=== PATIENT | male | born 1980 | race American Indian/Alaskan Native ===

== ENCOUNTER 2017-09-27 15:07 | Emergency (ER) | payer SELFPAY | END 2017-09-27 15:08 | disposition left against medical advice (07) | LOC: ED 15:07 | DX: Z53.21 Procedure and treatment not carried out due to patient leaving prior to being seen by health care provider (principal) ==

== ENCOUNTER 2019-01-20 13:53 | Emergency (ER) | payer SELFPAY ==
[2019-01-20] MEDS ORDERED: MOTRIN PO ONE (16:19)
--- NOTE | 2019-01-20 16:22 | Emergency Department Report ---
ED Back Pain/Injury HPI - General Chief Complaint: Rectal Pain Stated Complaint: TAILBONE PAIN/EXTREME Time Seen by Provider: 01/20/19 16:18 Source: patient Limitations: No Limitations - History of Present Illness Initial Comments: 38-year-old male reports to the emergency room for rectal pain after having a BM this morning. Patient reports he fell onto his butt on Wednesday with states pain only started after BM today. Patient is taking nothing for pain. Patient has no past medical history no surgical history no allergies to medicine no current medications. MD Complaint: back injury, fall -: days(s) (3) Similar Symptoms Previously: No Place: work Quality: sharp Consistency: intermittent Improves With: none Worsens With: other (bowel movement) Context: fall Associated Symptoms: denies other symptoms - Related Data Previous Rx's Medication Instructions Recorded Last Taken Type HYDROcodone/APAP 5-325 [[place] 1 each PO Q6HR PRN #15 tablet 07/27/15 08/01/15 09:00 Rx 5/325] cephALEXin [Keflex] 500 mg PO Q6HR #21 capsule 07/27/15 08/03/15 09:00 Rx Ibuprofen [Motrin 600 MG tab] 600 mg PO Q8H PRN #21 tablet 01/20/19 Unknown Rx Allergies Allergy/AdvReac Type Severity Reaction Status Date / Time No Known Allergies Allergy Verified 01/20/19 13:55 ED Review of Systems ROS: Stated complaint: TAILBONE PAIN/EXTREME Other details as noted in HPI Comment: All other systems reviewed and negative Musculoskeletal: back pain (sacrococcyx pain or tenderness) ED Past Medical Hx - Past Medical History Previous Medical History?: No - Surgical History Past Surgical History?: No - Social History Smoking Status: Current Some Day Smoker Substance Use Type: None - Medications Home Medications: Home Medications Medication Instructions Recorded Confirmed Last Taken Type HYDROcodone/APAP 5-325 [[place] 1 each PO Q6HR PRN #15 tablet 07/27/15 08/03/15 08/01/15 09:00 Rx 5/325] cephALEXin [Keflex] 500 mg PO Q6HR #21 capsule 07/27/15 08/03/15 08/03/15 09:00 Rx Ibuprofen [Motrin 600 MG tab] 600 mg PO Q8H PRN #21 tablet 01/20/19 Unknown Rx ED Physical Exam - General Limitations: No Limitations General appearance: alert, in no apparent distress - Head Head exam: Present: atraumatic, normocephalic - Eye Eye exam: Present: normal appearance - ENT ENT exam: Present: mucous membranes moist - Respiratory Respiratory exam: Absent: respiratory distress - GI/Abdominal GI/Abdominal exam: Present: soft. Absent: distended - Back Exam Back exam: Present: other (Cococcyx is tenderness) - Neurological Exam Neurological exam: Present: alert, oriented X3 - Psychiatric Psychiatric exam: Present: normal affect, normal mood - Skin Skin exam: Present: warm, dry, intact, normal color. Absent: rash ED Course Vital Signs 01/20/19 13:55 Temperature 98.3 F Pulse Rate 85 Respiratory 16 Rate Blood Pressure 157/105 O2 Sat by Pulse 98 Oximetry ED Medical Decision Making - Radiology Data Radiology results: report reviewed X-ray of spine sacral cockle is to do shows negative views of the sacrum and coccyx. No evidence of sclerosis without evidence of acute fractures noted. - Medical Decision Making Patient has been evaluated by this provider in [facility]. Ibuprofen given for pain. X-ray of sacrococcygeal Critical care attestation.: If time is entered above; I have spent that time in minutes in the direct care of this critically ill patient, excluding procedure time. ED Disposition Clinical Impression: Coccygeal pain, acute Disposition: DC-01 TO HOME OR SELFCARE Is pt being admited?: No Does the pt Need Aspirin: No Condition: Stable Additional Instructions: X-rays were negative of your sacral and coccygeal. Pain medication as needed. Follow-up with the primary care provider if his symptoms persist or gets worse. Prescriptions: Ibuprofen [Motrin 600 MG tab] 600 mg PO Q8H PRN #21 tablet PRN Reason: Pain Referrals: CARRIE SINCLAIR MD [Primary Care Provider] - 3-5 Days
--- NOTE | 2019-01-20 17:24 | XRay Report ---
PROCEDURE: XR SPINE SACRUM/COCCYX 2+V TECHNIQUE: AP, angled, and lateral views of the sacrum and coccyx HISTORY: fall with coccyx with pain and tenderness COMPARISONS: None . FINDINGS: Sacroiliac joints are maintained with no evidence for sclerosis. No definite evidence for acute fract ure is noted. Sacral arches are maintained. Coccyx appears normal without fracture. The presacral sof t tissues are normal. Numerous calcified phleboliths deep in the pelvis are noted. IMPRESSION: Negative views of the sacrum and coccyx This document is electronically signed by Barbara Andrew MD., January 20 2019 05:22:31 PM ET
[2019-01-20 18:11] VITALS: BP 140/98
== END 2019-01-20 18:10 | disposition home or self-care (01) ==
LOC: ED 13:53
DX: M53.3 Sacrococcygeal disorders, not elsewhere classified (principal); F17.200 Nicotine dependence, unspecified, uncomplicated
CPT/HCPCS: 72220

== ENCOUNTER 2020-02-08 18:27 | Emergency (ER) | payer SELFPAY ==
[2020-02-08 18:32] VITALS: BP 161/98
--- NOTE | 2020-02-08 18:59 | Emergency Department Report ---
- General Chief Complaint: Headache Stated Complaint: HEADACHE SORE THROAT Time Seen by Provider: 02/08/20 18:34 Source: patient Mode of arrival: Ambulatory Limitations: No Limitations - History of Present Illness Initial Comments: This is a 39-year-old male nontoxic, well nourished in appearance, no acute signs of distress presents to the ED with c/o of rhinorrhea, nasal congestion, sore throat and frontal sinus headache. Patient describes headache as diffuse with level of 3 out of 10. Patient denies thunderclap headache. Patient denies any radiation of pain. Patient denies any head trauma. Patient denies any visual changes. Patient denies worse headache. Patient denies facial drooping or one sided weakness. Patient denies any radiation of pain. Patient describe s sore throat as swallowing razer blades. Patient denies any fever, chills, headache, stiff neck, nausea, vomiting, chest pain, shortness of breath, numbness or tingling. Patient denies any drooling or hoarseness. Patient denies any allergies or significant past medical history. MD Complaint: sore throat, sinus pain -: days(s) Severity: mild Severity scale (0 -10): 3 Quality: aching Consistency: intermittent Improves With: nothing Worsens With: other (swallowing) Associated Symptoms: rhinorrhea, nasal congestion, other (frontal sinus headache). denies: fever, chills, myalgias, diaphoresis, headache, sore throat, stiff neck, cough, chest pain, shortness of breath, abdominal pain, nausea, vomiting, diarrhea, dysuria, rash, confusion, right sweats, weight loss, epi staxis, hoarseness, ear pain - Related Data Previous Rx's Medication Instructions Recorded Last Taken Type HYDROcodone/APAP 5-325 [[place] 1 each PO Q6HR PRN #15 tablet 07/27/15 08/01/15 09:00 Rx 5/325] cephALEXin [Keflex] 500 mg PO Q6HR #21 capsule 07/27/15 08/03/15 09:00 Rx Ibuprofen [Motrin 600 MG tab] 600 mg PO Q8H PRN #21 tablet 01/20/19 Unknown Rx Clindamycin [Clindamycin CAP] 300 mg PO Q8H #21 cap 02/11/19 Unknown Rx Naproxen [Naprosyn] 500 mg PO DAILY PRN #20 tablet 02/11/19 Unknown Rx traMADoL [Ultram 50 MG tab] 50 mg PO Q6HR PRN #12 tablet 02/11/19 Unknown Rx Amoxicillin/K Clav Tab [Augmentin 1 tab PO Q12HR #20 tab 02/08/20 Unknown Rx 875 mg] Nystas/Diphen/Xyl Visc/Mylanta 15 ml MM Q6H PRN 5 Days ml 02/08/20 Unknown Rx [Magic Mouthwash] Allergies Allergy/AdvReac Type Severity Reaction Status Date / Time No Known Allergies Allergy Verified 02/08/20 18:28 ED Review of Systems ROS: Stated complaint: HEADACHE SORE THROAT Other details as noted in HPI Constitutional: denies: chills, fever Eyes: denies: eye pain, eye discharge, vision change ENT: congestion. denies: ear pain, throat pain Respiratory: denies: cough, shortness of breath, wheezing Cardiovascular: denies: chest pain, palpitations Endocrine: no symptoms reported Gastrointestinal: denies: abdominal pain, nausea, diarrhea Genitourinary: denies: urgency, dysuria Musculoskeletal: denies: back pain, joint swelling, arthralgia Skin: denies: rash, lesions Neurological: headache. denies: weakness, paresthesias Psychiatric: denies: anxiety, depression Hematological/Lymphatic: denies: easy bleeding, easy bruising ED Past Medical Hx - Past Medical History Previous Medical History?: No - Surgical History Past Surgical History?: No - Social History Smoking Status: Never Smoker Substance Use Type: None - Medications Home Medications: Home Medications Medication Instructions Recorded Confirmed Last Taken Type HYDROcodone/APAP 5-325 [[place] 1 each PO Q6HR PRN #15 tablet 07/27/15 08/03/15 08/01/15 09:00 Rx 5/325] cephALEXin [Keflex] 500 mg PO Q6HR #21 capsule 07/27/15 08/03/15 08/03/15 09:00 Rx Ibuprofen [Motrin 600 MG tab] 600 mg PO Q8H PRN #21 tablet 01/20/19 Unknown Rx Clindamycin [Clindamycin CAP] 300 mg PO Q8H #21 cap 02/11/19 Unknown Rx Naproxen [Naprosyn] 500 mg PO DAILY PRN #20 tablet 02/11/19 Unknown Rx traMADoL [Ultram 50 MG tab] 50 mg PO Q6HR PRN #12 tablet 02/11/19 Unknown Rx Amoxicillin/K Clav Tab [Augmentin 1 tab PO Q12HR #20 tab 02/08/20 Unknown Rx 875 mg] Nystas/Diphen/Xyl Visc/Mylanta 15 ml MM Q6H PRN 5 Days ml 02/08/20 Unknown Rx [Magic Mouthwash] ED Physical Exam - General Limitations: No Limitations General appearance: alert, in no apparent distress - Head Head exam: Present: atraumatic, normocephalic - Eye Eye exam: Present: normal appearance, PERRL, EOMI - Expanded ENT Exam Expanded Ear exam: Present: normal external inspection Mouth exam: Present: normal external inspection, drooling, tongue normal. Absent: trismus, muffled voice Teeth exam: Present: normal inspection Throat exam: Positive: tonsillar erythema, tonsillomegaly (2+), other (uvula midline. no abscess or swelling noted). Negative: tonsillar exudate, R peritonsillar mass, L peritonsillar mass - Neck Neck exam: Present: normal inspection, full ROM. Absent: tenderness, meningismus, lymphadenopathy - Respiratory Respiratory exam: Present: normal lung sounds bilaterally. Absent: respiratory distress, wheezes, rales, rhonchi, stridor - Cardiovascular Cardiovascular Exam: Present: regular rate, normal rhythm, normal heart sounds. Absent: bradycardia, tachycardia, irregular rhythm, systolic murmur, diastolic murmur, rubs, gallop - Extremities Exam Extremities exam: Present: normal inspection, full ROM - Back Exam Back exam: Present: normal inspection, full ROM. Absent: tenderness, CVA tenderness (R), CVA tenderness (L), muscle spasm, paraspinal tenderness, vertebral tenderness, rash noted - Neurological Exam Neurological exam: Present: alert, oriented X3, normal gait - Expanded Neurological Exam Expanded Patient oriented to: Present: person, place, time Cranial nerves: EOM's Intact: Normal, Facial Sensation: Normal Cerebellar function: Finger to Nose: Normal Motor strength exam: RUE: 5, LUE: 5, RLE: 5, LLE: 5 Best Eye Response ([place]): (4) open spontaneously Best Motor Response (Demetri): (6) obeys commands Best Verbal Response ([place]etri): (5) oriented [place] Total: 15 - Psychiatric Psychiatric exam: Present: normal affect, normal mood - Skin Skin exam: Present: warm, dry, intact, normal color. Absent: rash ED Course Vital Signs 02/08/20 18:31 Temperature 97.7 F Pulse Rate 75 Respiratory 18 Rate Blood Pressure 161/98 [Right] - Reevaluation(s) Reevaluation #1: 02/08/20 19:01 Patient is speaking in full sentences with no signs of distress noted. ED Medical Decision Making - Medical Decision Making This is a 39-year-old male that presents with sinusitis and pharyngitis. Patient is stable and was examined by me. Patient is neurologically stable. There is no stiff neck or neck pain. Vital signs are stable. Patient is afebrile. Patient be treated with Augmentin. Patient was referred to Follow-up with a primary care doctor in 3-5 days or if symptoms worsen and continue return to emergency room as soon as possible. At time of discharge, the patient does not seem toxic or ill in appearance. No acute signs of distress noted. Patient agrees to discharge treatment plan of care. No further questions noted by the patient. Critical care attestation.: If time is entered above; I have spent that time in minutes in the direct care of this critically ill patient, excluding procedure time. ED Disposition Clinical Impression: Sinusitis Qualifiers: Sinusitis location: frontal Chronicity: acute Recurrence: non-recurrent Qualified Code(s): J01.10 - Acute frontal sinusitis, unspecified Pharyngitis Qualifiers: Pharyngitis/tonsillitis etiology: unspecified etiology Qualified Code(s): J02.9 - Acute pharyngitis, unspecified Disposition: DC-01 TO HOME OR SELFCARE Is pt being admited?: No Does the pt Need Aspirin: No Condition: Stable Instructions: Sinusitis (ED), Pharyngitis (ED) Additional Instructions: Follow-up with a primary care doctor in 3-5 days or if symptoms worsen and continue return to emergency room as soon as possible. Prescriptions: Amoxicillin/K Clav Tab [Augmentin 875 mg] 1 tab PO Q12HR #20 tab Nystas/Diphen/Xyl Visc/Mylanta [Magic Mouthwash] 15 ml MM Q6H PRN 5 Days ml PRN Reason: Sore Throat Referrals: PRIMARY CARE, [Referring] - 3-5 Days ROSY HAGAN MD [Staff Physician] - 3-5 Days [facility] [Provider Group] - 3-5 Days Forms: Work/School Release Form(ED)
== END 2020-02-08 19:10 | disposition home or self-care (01) ==
LOC: ED 18:27
DX: J32.8 Other chronic sinusitis (principal); J02.9 Acute pharyngitis, unspecified; Z79.899 Other long term (current) drug therapy; Z98.890 Other specified postprocedural states
CPT/HCPCS: 99282

== ENCOUNTER 2020-12-21 06:20 | Emergency (ER) | payer OTHER ==
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
[2020-12-21 08:38] LABS: Basophils # (Auto) 0.1 K/mm3 (0.0-0.1); Eosinophils # (Auto) 0.2 K/mm3 (0.0-0.4); Eosinophils % (Auto) 3.1 % (0.0-4.3); Hematocrit 39.5 % (35.5-45.6); Hemoglobin 13.8 gm/dl (11.8-15.2); Lymphocytes # (Auto) 2.3 K/mm3 (1.2-5.4); Lymphocytes % (Auto) 29.4 % (13.4-35.0); Mean Corpuscular HGB Conc 35 % (32-34); Mean Corpuscular Volume 90 fl (84-94); Monocytes # (Auto) 0.9 K/mm3 (0.0-0.8); Monocytes % (Auto) 12.2 % (0.0-7.3); Platelet Count 234 K/mm3 (140-440); Red Blood Count 4.39 M/mm3 (3.65-5.03); Red Cell Distribution Width 13.7 % (13.2-15.2)
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
[2020-12-21 08:55] LABS: INR 1.07 (0.87-1.13); Partial Thromboplastin Time 29.5 Sec. (24.2-36.6)
[2020-12-21 09:02] LABS: BUN/Creatinine Ratio 15; Blood Urea Nitrogen 16 mg/dL (9-20); Calcium 8.4 mg/dL (8.4-10.2); Hemolysis Index 3
[2020-12-21 09:12] VITALS: BP 122/72
[2020-12-21] MEDS ORDERED: KETOROLAC 30 MG/1 ML INJ ONE (09:13)
[2020-12-21] MEDS ORDERED: KETOROLAC 30 MG/1 ML INJ IV ONE (09:13)
== END 2020-12-21 09:43 | disposition home or self-care (01) ==
LOC: ED 06:20
DX: S20.219A Contusion of unspecified front wall of thorax, initial encounter (principal); S30.1XXA Contusion of abdominal wall, initial encounter; I10 Essential (primary) hypertension; F17.200 Nicotine dependence, unspecified, uncomplicated; Z79.899 Other long term (current) drug therapy; V89.2XXA Person injured in unspecified motor-vehicle accident, traffic, initial encounter; Y92.410 Unspecified street and highway as the place of occurrence of the external cause; Y93.89 Activity, other specified; Y99.8 Other external cause status
CPT/HCPCS: 36415; 70450; 71260; 72125; 74177; 80048; 85025; 85610; 85730; 96374; 99284; J1885; Q9967

== ENCOUNTER 2021-09-14 02:30 | Emergency (ER) | payer SELFPAY ==
[2021-09-14] MEDS ORDERED: LIDOCAINE VISCOUS 2% 15 ML ORAL LIQD PO ONE (03:44)
--- NOTE | 2021-09-14 04:01 | Emergency Department Report ---
HPI - General Chief Complaint: Sore Throat Time Seen by Provider: 09/14/21 03:30 - HPI HPI: MSE 1 The patient is a 40-year-old male present with a chief complaint of sore throat and cough. The patient states for the past 3 days he has had a sore throat and a cough productive of green sputum. Patient admits to chest congestion and odynophagia. Patient denies history of fever but admits to occasional rhinorrhea. The patient states he did not receive a Covid vaccination but he gets tested for coronavirus twice a week and last tested negative yesterday. Patient denies loss of sense of taste or smell. ED Past Medical Hx - Past Medical History Previous Medical History?: Yes Hx Hypertension: Yes - Surgical History Past Surgical History?: Yes - Family History Family history: no significant - Social History Smoking Status: Current Some Day Smoker (Rarely) Substance Use Type: None (Denies illicit drug use), Alcohol (Occasional) - Medications Home Medications: Home Medications Medication Instructions Recorded Confirmed Last Taken Type HYDROcodone/APAP 5-325 [[place] 1 each PO Q6HR PRN #15 tablet 07/27/15 08/03/15 08/01/15 09:00 Rx 5/325] cephALEXin [Keflex] 500 mg PO Q6HR #21 capsule 07/27/15 08/03/15 08/03/15 09:00 Rx Ibuprofen [Motrin 600 MG tab] 600 mg PO Q8H PRN #21 tablet 01/20/19 Unknown Rx Clindamycin [Clindamycin CAP] 300 mg PO Q8H #21 cap 02/11/19 Unknown Rx Naproxen [Naprosyn] 500 mg PO DAILY PRN #20 tablet 02/11/19 Unknown Rx traMADoL [Ultram 50 MG tab] 50 mg PO Q6HR PRN #12 tablet 02/11/19 Unknown Rx Amoxicillin/K Clav Tab [Augmentin 1 tab PO Q12HR #20 tab 02/08/20 Unknown Rx 875 mg] Nystas/Diphen/Xyl Visc/Mylanta 15 ml MM Q6H PRN 5 Days ml 02/08/20 Unknown Rx [Magic Mouthwash] Cyclobenzaprine [Flexeril] 10 mg PO TID PRN #20 tablet 12/21/20 Unknown Rx Naproxen [Naprosyn] 500 mg PO BID #14 tablet 12/21/20 Unknown Rx Albuterol Mdi (or & Nicu Only) 2 puff IH QID PRN #8.5 gram 09/14/21 Unknown Rx [ProAir HFA Inhaler] Amoxicillin/K Clav Oral Liqd 10 ml PO Q8H #300 ml 09/14/21 Unknown Rx [Augmentin 250-62.5 mg/5 ml] HYDROcodone/Acetaminop 7.5-325 15 ml PO Q6H PRN #150 ml 09/14/21 Unknown Rx [[place]] guaiFENesin DM [Guaifenesin Dm 10 ml PO Q6H #200 ml 09/14/21 Unknown Rx Syrup] ED Review of Systems ROS: Stated complaint: SORE THROAT/COLD SX Other details as noted in HPI Constitutional: denies: fever Eyes: denies: eye pain ENT: throat pain, congestion Respiratory: cough Cardiovascular: denies: chest pain Endocrine: no symptoms reported Gastrointestinal: denies: abdominal pain Musculoskeletal: myalgia Neurological: denies: headache Physical Exam - Physical Exam Vital Signs: Vital Signs 09/14/21 03:19 Temperature 98.6 F Pulse Rate 73 Respiratory 18 Rate Blood Pressure 154/86 O2 Sat by Pulse 95 Oximetry Physical Exam: GENERAL: The patient is well-developed well-nourished male sitting on chair not appearing to be in acute distress. [] HEENT: Normocephalic. Atraumatic. Extraocular motions are intact. Patient has moist mucous membranes. Mildly injected pharynx. No exudates appreciated. Uvula midline. NECK: Supple. No stridor CHEST/LUNGS: Clear to auscultation. There is no respiratory distress noted. HEART/CARDIOVASCULAR: Regular. There is no tachycardia. There is no gallop rub or murmur. ABDOMEN: Abdomen is soft, nontender. Patient has normal bowel sounds. There is no abdominal distention. SKIN: There is no rash. There is no edema. There is no diaphoresis. NEURO: The patient is awake, alert, and oriented. The patient is cooperative. The patient has no focal neurologic deficits. The patient has normal speech. GCS 15 MUSCULOSKELETAL: There is no evidence of acute injury. ED Course Vital Signs 09/14/21 03:19 Temperature 98.6 F Pulse Rate 73 Respiratory 18 Rate Blood Pressure 154/86 O2 Sat by Pulse 95 Oximetry ED Medical Decision Making - Radiology Data Radiology results: report reviewed (Chest x-ray), image reviewed (Chest x-ray) interpreted by me: Chest x-ray-no definite focal infiltrates, no pneumothorax [facility] [address] [place] [address] XRay Report Signed Patient: STACY ESPARZA MR#: [id number] : 1980 Acct:[id number] Age/Sex: 40 / M ADM Date: 09/14/21 Loc: ED Attending Dr: Ordering Physician: POOL COLBY MD Date of Service: 09/14/21 Procedure(s): XR chest routine 2V Accession Number(s): [id number] cc: POOL COLBY MD Fluoro Time In Minutes: XR chest routine 2V INDICATION / CLINICAL INFORMATION: chest congestion and cough. COMPARISON: None available. FINDINGS: SUPPORT DEVICES: None. HEART /PULMONARY VASCULATURE: No significant abnormality. LUNGS / PLEURA: No significant pulmonary or pleural abnormality. No pneumothorax. ADDITIONAL FINDINGS: No significant additional findings. IMPRESSION: 1. No acute findings. Signer Name: Christie San MD Signed: 09/14/2021 4:06 AM Workstation Name: [id number] Transcribed By: JS Dictated By: CHRISTIE SAN MD Electronically Authenticated By: CHRISTIE SAN MD Signed Date/Time: 09/14/21405 DD/ 4 TD/TT: Print Cancel - Medical Decision Making Patient's 2-minute walking SPO2 95% on room air - Differential Diagnosis Pneumonia, bronchitis, COVID-19, pharyngitis Critical care attestation.: If time is entered above; I have spent that time in minutes in the direct care of this critically ill patient, excluding procedure time. ED Disposition Clinical Impression: URI (upper respiratory infection), Pharyngitis, Cough Disposition: 01 HOME / SELF CARE / HOMELESS Is pt being admited?: No Does the pt Need Aspirin: No Condition: Stable Instructions: Cough, Adult, [id number], Pharyngitis Additional Instructions: Return to the emergency department should you develop worsening symptoms, inability to tolerate food or liquids, high fever or any other concerns Prescriptions: Amoxicillin/K Clav Oral Liqd [Augmentin 250-62.5 mg/5 ml] 10 ml PO Q8H #300 ml guaiFENesin DM [Guaifenesin Dm Syrup] 10 ml PO Q6H #200 ml HYDROcodone/Acetaminop 7.5-325 [[place]] 15 ml PO Q6H PRN #150 ml PRN Reason: Pain Albuterol Mdi (or & Nicu Only) [ProAir HFA Inhaler] 2 puff IH QID PRN #8.5 gram PRN Reason: Shortness Of Breath Referrals: [facility] [Provider Group] - 3-5 Days Time of Disposition: 04:48
--- NOTE | 2021-09-14 04:10 | XRay Report ---
XR chest routine 2V INDICATION / CLINICAL INFORMATION: chest congestion and cough. COMPARISON: None available. FINDINGS: SUPPORT DEVICES: None. HEART /PULMONARY VASCULATURE: No significant abnormality. LUNGS / PLEURA: No significant pulmonary or pleural abnormality. No pneumothorax. ADDITIONAL FINDINGS: No significant additional findings. IMPRESSION: 1. No acute findings. Signer Name: Yan Richardson MD Signed: 09/14/2021 4:06 AM Workstation Name: [id number]
[2021-09-14 06:06] VITALS: BP 148/91
== END 2021-09-14 05:40 | disposition home or self-care (01) ==
LOC: ED 02:30
DX: J06.9 Acute upper respiratory infection, unspecified (principal); I10 Essential (primary) hypertension; F17.200 Nicotine dependence, unspecified, uncomplicated
CPT/HCPCS: 71046; 99283

== ENCOUNTER 2022-02-23 19:04 | Emergency (ER) | payer SELFPAY ==
[2022-02-24] MEDS ORDERED: IBUPROFEN 600 MG TAB PO ONE (04:19)
[2022-02-24] MEDS ORDERED: ACETAMINOPHEN 500 MG TAB PO ONE (04:19)
[2022-02-24] MEDS ORDERED: predniSONE 20 MG TAB PO ONE (04:19)
--- NOTE | 2022-02-24 04:43 | Emergency Department Report ---
ED General Adult HPI - General Chief complaint: Shoulder Injury Stated complaint: SHOULDER PAIN Source: patient Mode of arrival: Ambulatory Limitations: No Limitations - History of Present Illness Initial comments: Patient is a 41-year-old -Welsh male with a history of chronic low back pain with sciatica as well as chronic cervical radiculopathy who presents to the ED with complaint of acute exacerbation of his chronic pain for the last 3 days. Patient states that he was unable to take any medications at home because he ran out of this regular ibuprofen that he takes at home for chronic pain. Patient denies chest pain or shortness of breath, numbness and tingling or weakness of lower and upper extremities bilaterally, traumatic injury or heavy lifting, fall, abdominal pain, nausea and vomiting. MD Complaint: Low back pain; bilateral shoulder pain -: Gradual, year(s) (10) Location: back (low back pain), upper extremity (Bilateral shoulder pain), lower extremity (bilateral lower extremity pain) Radiation: extremity (bilateral lower and upper extremity pain) Quality: burning, aching, sharp Consistency: intermittent Improves with: none Worsens with: movement Associated Symptoms: denies other symptoms. denies: confusion, chest pain, cough, diaphoresis, fever/chills, loss of appetite, malaise, nausea/vomiting, rash, seizure, shortness of breath, syncope, weakness Treatments Prior to Arrival: none - Related Data Previous Rx's Medication Instructions Recorded Last Taken Type HYDROcodone/APAP 5-325 [[place] 1 each PO Q6HR PRN #15 tablet 07/27/15 08/01/15 09:00 Rx 5/325] cephALEXin [Keflex] 500 mg PO Q6HR #21 capsule 07/27/15 08/03/15 09:00 Rx Ibuprofen [Motrin 600 MG tab] 600 mg PO Q8H PRN #21 tablet 01/20/19 Unknown Rx Clindamycin [Clindamycin CAP] 300 mg PO Q8H #21 cap 02/11/19 Unknown Rx Naproxen [Naprosyn] 500 mg PO DAILY PRN #20 tablet 02/11/19 Unknown Rx traMADoL [Ultram 50 MG tab] 50 mg PO Q6HR PRN #12 tablet 02/11/19 Unknown Rx Amoxicillin/K Clav Tab [Augmentin 1 tab PO Q12HR #20 tab 02/08/20 Unknown Rx 875 mg] Nystas/Diphen/Xyl Visc/Mylanta 15 ml MM Q6H PRN 5 Days ml 02/08/20 Unknown Rx [Magic Mouthwash] Cyclobenzaprine [Flexeril] 10 mg PO TID PRN #20 tablet 12/21/20 Unknown Rx Albuterol Mdi (or & Nicu Only) 2 puff IH QID PRN #8.5 gram 09/14/21 Unknown Rx [ProAir HFA Inhaler] Amoxicillin/K Clav Oral Liqd 10 ml PO Q8H #300 ml 09/14/21 Unknown Rx [Augmentin 250-62.5 mg/5 ml] HYDROcodone/Acetaminop 7.5-325 15 ml PO Q6H PRN #150 ml 09/14/21 Unknown Rx [[place]] guaiFENesin DM [Guaifenesin Dm 10 ml PO Q6H #200 ml 09/14/21 Unknown Rx Syrup] Gabapentin 300 mg PO BID PRN #30 cap 02/24/22 Unknown Rx Naproxen [Naprosyn TAB] 500 mg PO Q12H PRN #30 tablet 02/24/22 Unknown Rx methOCARBAMOL [Robaxin TAB] 750 mg PO BID PRN #30 tab 02/24/22 Unknown Rx predniSONE [Deltasone] 60 mg PO QDAY #15 tab 02/24/22 Unknown Rx Allergies Allergy/AdvReac Type Severity Reaction Status Date / Time No Known Allergies Allergy Verified 02/08/20 18:28 ED Review of Systems ROS: Stated complaint: SHOULDER PAIN Other details as noted in HPI Constitutional: denies: chills, fever Eyes: denies: eye pain, eye discharge, vision change ENT: denies: ear pain, throat pain Respiratory: denies: cough, shortness of breath, wheezing Cardiovascular: denies: chest pain, palpitations Endocrine: no symptoms reported Gastrointestinal: denies: abdominal pain, nausea, diarrhea Genitourinary: denies: urgency, dysuria Musculoskeletal: back pain (Low back pain), arthralgia (Bilateral shoulder and leg pain), myalgia. denies: joint swelling Skin: denies: rash, lesions Neurological: denies: headache, weakness, paresthesias Psychiatric: denies: anxiety, depression Hematological/Lymphatic: denies: easy bleeding, easy bruising ED Past Medical Hx - Past Medical History Hx Hypertension: Yes Additional medical history: Chronic low back pain with sciatica - Social History Smoking Status: Current Some Day Smoker (Rarely) Substance Use Type: None (Denies illicit drug use), Alcohol (Occasional) - Medications Home Medications: Home Medications Medication Instructions Recorded Confirmed Last Taken Type HYDROcodone/APAP 5-325 [[place] 1 each PO Q6HR PRN #15 tablet 07/27/15 08/03/15 08/01/15 09:00 Rx 5/325] cephALEXin [Keflex] 500 mg PO Q6HR #21 capsule 07/27/15 08/03/15 08/03/15 09:00 Rx Ibuprofen [Motrin 600 MG tab] 600 mg PO Q8H PRN #21 tablet 01/20/19 Unknown Rx Clindamycin [Clindamycin CAP] 300 mg PO Q8H #21 cap 02/11/19 Unknown Rx Naproxen [Naprosyn] 500 mg PO DAILY PRN #20 tablet 02/11/19 Unknown Rx traMADoL [Ultram 50 MG tab] 50 mg PO Q6HR PRN #12 tablet 02/11/19 Unknown Rx Amoxicillin/K Clav Tab [Augmentin 1 tab PO Q12HR #20 tab 02/08/20 Unknown Rx 875 mg] Nystas/Diphen/Xyl Visc/Mylanta 15 ml MM Q6H PRN 5 Days ml 02/08/20 Unknown Rx [Magic Mouthwash] Cyclobenzaprine [Flexeril] 10 mg PO TID PRN #20 tablet 12/21/20 Unknown Rx Albuterol Mdi (or & Nicu Only) 2 puff IH QID PRN #8.5 gram 09/14/21 Unknown Rx [ProAir HFA Inhaler] Amoxicillin/K Clav Oral Liqd 10 ml PO Q8H #300 ml 09/14/21 Unknown Rx [Augmentin 250-62.5 mg/5 ml] HYDROcodone/Acetaminop 7.5-325 15 ml PO Q6H PRN #150 ml 09/14/21 Unknown Rx [[place]] guaiFENesin DM [Guaifenesin Dm 10 ml PO Q6H #200 ml 09/14/21 Unknown Rx Syrup] Gabapentin 300 mg PO BID PRN #30 cap 02/24/22 Unknown Rx Naproxen [Naprosyn TAB] 500 mg PO Q12H PRN #30 tablet 02/24/22 Unknown Rx methOCARBAMOL [Robaxin TAB] 750 mg PO BID PRN #30 tab 02/24/22 Unknown Rx predniSONE [Deltasone] 60 mg PO QDAY #15 tab 02/24/22 Unknown Rx ED Physical Exam - General Limitations: No Limitations General appearance: alert, in no apparent distress - Head Head exam: Present: atraumatic, normocephalic, normal inspection - Eye Eye exam: Present: normal appearance, PERRL, EOMI Pupils: Present: normal accommodation - ENT ENT exam: Present: normal exam, normal orophraynx, mucous membranes moist, TM's normal bilaterally, normal external ear exam - Neck Neck exam: Present: normal inspection, tenderness (Palpable cervical paraspinal musculoskeletal tenderness), full ROM - Respiratory Respiratory exam: Present: normal lung sounds bilaterally. Absent: respiratory distress, wheezes, rales, rhonchi, stridor, chest wall tenderness, accessory muscle use, decreased breath sounds, prolonged expiratory - Cardiovascular Cardiovascular Exam: Present: regular rate, normal rhythm, normal heart sounds. Absent: systolic murmur, diastolic murmur, rubs, gallop - GI/Abdominal GI/Abdominal exam: Present: soft, normal bowel sounds. Absent: tenderness, guarding, rebound, hyperactive bowel sounds, hypoactive bowel sounds, organomegaly - Extremities Exam Extremities exam: Present: normal inspection, full ROM, tenderness (Bilateral shoulder tenderness), normal capillary refill. Absent: pedal edema, joint swelling - Back Exam Back exam: Present: normal inspection, full ROM, tenderness (Palpable lumbos acral paraspinal musculoskeletal tenderness), muscle spasm, paraspinal tenderness. Absent: CVA tenderness (R), CVA tenderness (L), vertebral tenderness - Neurological Exam Neurological exam: Present: alert, oriented X3, CN II-XII intact, normal gait, reflexes normal - Psychiatric Psychiatric exam: Present: normal affect, normal mood - Skin Skin exam: Present: warm, dry, intact, normal color. Absent: rash ED Course Vital Signs 02/23/22 23:33 Temperature 98.7 F Pulse Rate 75 Respiratory 16 Rate Blood Pressure 142/97 O2 Sat by Pulse 95 Oximetry ED Medical Decision Making - Medical Decision Making This is a 41-year-old -Welsh male with a history of chronic low back pain with sciatica as well as chronic cervical radiculopathy who presents to the ED with complaint of acute exacerbation of his chronic pain for the last 3 days. Patient states that he was unable to take any medications at home because he ran out of this regular ibuprofen that he takes at home for chronic pain. In the ED, patient is alert and oriented x3 and is not in any distress. Patient was treated for pain in the ED and discharged home on medication. Patient was discharged home on pain medications and advised to follow-up with his primary care physician in 7 to 10 days for reevaluation. Patient was advised to return to the ED immediately if symptoms get worse. - Differential Diagnosis Chronic pain; muscle spasm; sciatica; chronic back pain Critical care attestation.: If time is entered above; I have spent that time in minutes in the direct care of this critically ill patient, excluding procedure time. ED Disposition Clinical Impression: Cervical radiculopathy, Spasm of muscle of lower back Chronic low back pain with bilateral sciatica Qualifiers: Back pain laterality: bilateral Qualified Code(s): M54.42 - Lumbago with sciatica, left side; M54.41 - Lumbago with sciatica, right side; G89.29 - Other chronic pain Disposition: 01 HOME / SELF CARE / HOMELESS Is pt being admited?: No Does the pt Need Aspirin: No Condition: Stable Instructions: Muscle Cramps and Spasms, [id number], Cervical Radiculopathy, [id number], Chronic Back Pain, [id number] Additional Instructions: Take medication with food, drink plenty of fluids and follow-up with your primary care physician in 7 to 10 days for reevaluation. Return to the ED immediately if symptoms get worse. Prescriptions: predniSONE [Deltasone] 60 mg PO QDAY #15 tab Gabapentin 300 mg PO BID PRN #30 cap PRN Reason: Neuropathy Naproxen [Naprosyn TAB] 500 mg PO Q12H PRN #30 tablet PRN Reason: Pain , Severe (7-10) methOCARBAMOL [Robaxin TAB] 750 mg PO BID PRN #30 tab PRN Reason: Muscle Spasm Referrals: ROSY HAGAN MD [Primary Care Provider] - 3-5 Days Time of Disposition: 04:43 Print Language: GERMAN
[2022-02-24 05:29] VITALS: BP 140/76
== END 2022-02-24 05:28 | disposition home or self-care (01) ==
LOC: ED 19:04
DX: G89.29 Other chronic pain (principal); M54.41 Lumbago with sciatica, right side; M54.42 Lumbago with sciatica, left side; M54.12 Radiculopathy, cervical region; M62.830 Muscle spasm of back; I10 Essential (primary) hypertension; F17.200 Nicotine dependence, unspecified, uncomplicated; Z79.899 Other long term (current) drug therapy
CPT/HCPCS: 99282